=== PATIENT | female | born 1965 | race Hispanic/Latino ===

== ENCOUNTER 2019-09-23 23:55 | Emergency (ER) | payer BC ==
[2019-09-24 00:20] LABS: APPEARANCE,URINE Clear (CLEAR); BILIRUBIN,URINE Negative (NEGATIVE); COLOR,URINE Yellow (YELLOW); GLUCOSE, URINE (UA) Negative (NEGATIVE); KETONES,URINE Negative (NEGATIVE); LEUKOCYTE ESTERASE ,URINE Negative (NEGATIVE); NITRATE,URINE Negative (NEGATIVE); OCCULT BLOOD,URINE Moderate (NEGATIVE); PROTEIN,URINE Negative (NEGATIVE); UROBILINOGEN,URINE 0.2 mg/dL (0.2-1.0)
[2019-09-24] MEDS ORDERED: KETOROLAC TROMETHAMINE 15MG/ML ONE (00:29)
[2019-09-24] MEDS ORDERED: LIDOCAINE 5% TOPICAL PATCH TP ONE (00:29)
[2019-09-24 00:45] LABS: BACTERIA,URINE None Seen /HPF (None Seen); MUCUS,URINE Few LPF (None Seen); SQUAMOUS EPITHELIAL CELL,UR Moderate /HPF (0-2); WBC,URINE 0-1 /HPF (0-1)
[2019-09-24 00:50] LABS: BASOPHILS % (AUTO) 0.5 % (0.0-5.0); EOSINOPHILS % (AUTO) 2.1 % (0.0-8.0); HEMATOCRIT 37.8 % (36-48); LYMPHOCYTES % (AUTO) 30.3 % (21.0-51.0); MEAN CORPUSCULAR HEMOGLOBIN 31.1 pg (27.0-33.0); MEAN CORPUSCULAR HGB CONC 33.9 g/dL (32.0-36.0); MEAN CORPUSCULAR VOLUME 91.7 fL (79-99); MONOCYTES % (AUTO) 8.7 % (3.0-13.0); NEUTROPHILS % (AUTO) 58.4 % (40.0-77.0); PLATELET COUNT (AUTO) 335 K/uL (130-400); RED BLOOD CELL COUNT(AUTO) 4.12 MIL/uL (4.00-5.50); RED CELL DISTRIBUTION WIDTH 13.4 % (11.0-15.5); WHITE BLOOD COUNT (AUTO) 10.9 K/uL (4.8-10.8)
[2019-09-24 01:00] LABS: CREATININE 0.8 mg/dL (0.5-1.5); POTASSIUM 4.3 mmol/L (3.5-5.1)
[2019-09-24 01:05] LABS: ALBUMIN 3.7 g/dL (3.5-5.0); BILIRUBIN,TOTAL 0.3 mg/dL (0.2-1.0); TOTAL PROTEIN, SERUM 8.2 g/dL (6.0-8.3)
[2019-09-24] MEDS ORDERED: MORPHINE SULFATE 4 MG/1ML SYG ONE (01:46)
== END 2019-09-24 04:13 | disposition home or self-care (01) ==
LOC: EDH 23:55
DX: R07.89 Other chest pain (principal); R10.12 Left upper quadrant pain; M25.512 Pain in left shoulder; I10 Essential (primary) hypertension; Z98.890 Other specified postprocedural states
CPT/HCPCS: 36415; 71045; 71250; 80053; 81001; 83690; 84484; 85025; 85378; 93005; 96374; 96375; 99285; J1885; J2270

== ENCOUNTER 2023-04-12 05:31 | Day surgery (SDC) | payer BC ==
[2023-04-09 10:12] LABS: EOSINOPHILS % (AUTO) 5.9 % (0.0-8.0); HEMATOCRIT 33.4 % (36-48); LYMPHOCYTES % (AUTO) 24.9 % (21.0-51.0); MEAN CORPUSCULAR HEMOGLOBIN 29.6 pg (27.0-33.0); MEAN CORPUSCULAR HGB CONC 31.7 g/dL (32.0-36.0); MEAN CORPUSCULAR VOLUME 93.3 fL (79-99); MONOCYTES % (AUTO) 13.6 % (3.0-13.0); NEUTROPHILS % (AUTO) 54.1 % (40.0-77.0); PLATELET COUNT (AUTO) 351 K/uL (130-400); RED BLOOD CELL COUNT(AUTO) 3.58 MIL/uL (4.00-5.50); RED CELL DISTRIBUTION WIDTH 15.8 % (11.0-15.5)
[2023-04-09 10:23] LABS: APPEARANCE,URINE CLOUDY (CLEAR); BILIRUBIN,URINE NEGATIVE (NEGATIVE); COLOR,URINE YELLOW (YELLOW); GLUCOSE, URINE (UA) NEGATIVE (NEGATIVE); KETONES,URINE NEGATIVE (NEGATIVE); LEUKOCYTE ESTERASE ,URINE NEGATIVE Leu/uL (NEGATIVE); NITRATE,URINE NEGATIVE (NEGATIVE); OCCULT BLOOD,URINE SMALL (NEGATIVE); PROTEIN,URINE NEGATIVE (NEGATIVE); UROBILINOGEN,URINE 0.2 mg/dL (0.2-1.0)
[2023-04-09 10:26] LABS: BACTERIA,URINE RARE /HPF (None Seen); MUCUS,URINE RARE LPF (None Seen); RENAL EPITHELIAL CELLS,URINE RARE /HPF (None Seen); SQUAMOUS EPITHELIAL CELL,UR FEW /HPF (0-2)
[2023-04-09 10:26] LABS: INR 0.93 (0.85-1.15); PROTHROMBIN TIME 10.1 SEC (9.6-11.6)
[2023-04-09 10:28] LABS: PARTIAL THROMBOPLASTIN TIME 29.9 SEC (26.3-35.5)
[2023-04-09 10:30] VITALS: BP 162/74
[2023-04-12] VITALS (18 sets, daily range): BP systolic 119–160; BP diastolic 57–88
[~2023-04-12] VITALS: Ht 149.9 cm; Wt 78.9 kg
[2023-04-12] MEDS ORDERED: LACTATED RINGERS 1000ML 1,000 ML IV ONE (06:42)
[2023-04-12] MEDS ORDERED: CEFAZOLIN SODIUM 2 GM VIAL ONE (06:42)
[2023-04-12] MEDS ORDERED: BUPIVACAINE/PF 0.25% 30ML VIAL IJ ONE (10:02)
[2023-04-12] MEDS ORDERED: LIDOCAINE HCL 1% 20 ML VIAL ONE (10:02)
[2023-04-12] MEDS ORDERED: PROPOFOL 10 MG/ML 20ML VIAL IV ONE (10:22)
[2023-04-12] MEDS ORDERED: MIDAZOLAM HCL 1 MG/ML 2ML VIAL ONE (10:22)
[2023-04-12] MEDS ORDERED: ROCURONIUM 10MG/1ML SYR 10 MG/ML ML ONE (10:22)
[2023-04-12] MEDS ORDERED: FENTANYL CITRATE PF 50 MCG/1 ML 2ML VIAL ONE (10:22)
[2023-04-12] MEDS ORDERED: SUCCINYLCHOLINE CHLORIDE 20 MG/ML 10 ML VIAL ONE (10:22)
[2023-04-12] MEDS ORDERED: CEFAZOLIN SODIUM 2 GM VIAL IVPB ONE (10:25)
[2023-04-12] MEDS ORDERED: GLYCOPYRROLATE 1 MG/5 ML SYRINGE ONE (12:28)
[2023-04-12] MEDS ORDERED: NEOSTIGMINE 5MG/5ML SYR IV ONE (12:29)
[2023-04-12] MEDS ORDERED: LIDOCAINE 2%-EPI 1:200,000 20 ML VIAL IJ ONE (12:32)
[2023-04-12] MEDS ORDERED: ONDANSETRON 4MG INJ ONE (12:41)
[2023-04-12] MEDS ORDERED: MEPERIDINE-PF 25 MG/ML SYG ONE (13:13)
== END 2023-04-12 14:45 | disposition home or self-care (01) ==
LOC: DAH 05:31
PROVIDERS: ATTEND Student in an Organized Health Care Education/Training Program
DX: C50.512 Malignant neoplasm of lower-outer quadrant of left female breast (principal); Z20.822 Contact with and (suspected) exposure to COVID-19; R59.0 Localized enlarged lymph nodes; Z79.01 Long term (current) use of anticoagulants; Z98.890 Other specified postprocedural states; Z98.891 History of uterine scar from previous surgery; Z92.21 Personal history of antineoplastic chemotherapy; Z79.899 Other long term (current) drug therapy
CPT/HCPCS: 84703; 85025; 85610; 85730; 87088; 87426; 81001; 36415; 38525; 19301; 81025; 76098; 77065; 19285; A6260; A4663; J7120; J3010; J3490 ×3; J2710; J0330; J2250; J2704; J2405; J2175; J0690 ×2; C1819; G0168; A4930; A4215; A4223; A4222; A4221; A4600

== ENCOUNTER → 2024-04-13 | Outpatient (CLI) | payer SELFPAY | END | disposition home or self-care (01) | LOC: RAH 09:51 | PROVIDERS: ATTEND Student in an Organized Health Care Education/Training Program | DX: C50.912 Malignant neoplasm of unspecified site of left female breast (principal); R92.331 Mammographic heterogeneous density, right breast; N64.89 Other specified disorders of breast | CPT/HCPCS: 77066 ==

== ENCOUNTER → 2025-04-05 | Outpatient (CLI) | payer OTHER ==
--- NOTE | 2025-04-05 15:39 | HMCIMG ---
CT HEART SAVER PROMOTIONAL HISTORY: Calcium scoring COMPARISON: None TECHNIQUE: Computed tomography of the heart was performed with ECG gating and suspended respiration. Postprocessing was performed on a computer workstation to obtain diastolic phase images, determine calcium score and provide a quantitative assessment of extent of disease. This CT included only the heart. HeartSaver score is 69.9. Please see cardiac calcium score report. The available CT chest images show no acute finding. CT was performed with one or more following dose reduction techniques: automated exposure control, adjustment of the mA and kv according to patient's size, or use of a iterative reconstruction technique.
== END | disposition home or self-care (01) ==
LOC: RAH 15:01
PROVIDERS: ATTEND Family Medicine
DX: Z13.6 Encounter for screening for cardiovascular disorders (principal); E78.2 Mixed hyperlipidemia
CPT/HCPCS: 75571